=== PATIENT | female | born 1990 | race Caucasian/White ===

== ENCOUNTER 2017-10-08 21:28 | Emergency (ER) | payer MEDICAID ==
[~2017-10-08] VITALS: Ht 160 cm; Wt 89.4 kg
[~2017-10-08 21:28] MED LIST: AMOXICOT500 M1 PO; AMOXICOT500 MG PO; MACROBID100 M3 PO; METHADONE H5 MG/5 M1 PO; MOTRIN 600MG.600 MG PO; NOMEDS XX; PREDNISONE 20MG20 MG PO; TORADOL10 M2 PO
--- OUTSIDE RECORDS SUMMARY | 2017-10-08 21:44 | External Medical Summary Rpt | CCD ---
Author Author Conduent Organization Con[employer] Address Unknown Phone Unavailable Purpose Continuity of Care Document - through 2016
--- OUTSIDE RECORDS SUMMARY | 2017-10-08 21:44 | External Medical Summary Rpt | CCD ---
Author Author , GAVINO ANDERSEN Address Unknown Phone [email or web address] Care Team Providers Care Financial Dealers Name Role Phone [facility] # [id number], Unavailable Unavailable [facility] # [id number] [facility] Unavailable Unavailable [id number] # [phone], [facility] [id number] # [phone] Purpose Continuity of Care Document - 08-29-2010 through 2016 Problems Code Diagnosis DOS Provider Status F17.210 NICOTINE 06-10-2017 DEPENDENCE, CIGARETTES, UNCOMPLICAT ED J45.909 UNSPECIFIED 06-10-2017 ASTHMA, UNCOMPLICAT ED R07.82 INTERCOSTAL 06-10-2017 PAIN R07.9 CHEST PAIN, 06-10-2017 UNSPECIFIED G56.02 CARPAL TUNNEL SYNDROME, LEFT UPPER LIMB J06.9 ACUTE UPPER RESPIRATORY INFECTION, UNSPECIFIED J32.9 CHRONIC SINUSITIS, UNSPECIFIED Z72.0 TOBACCO USE Medications Na ND Rx Da Fi Fi Am Da Di Ph RX Ph St me C No te ll ll ou ys ag ar # ys at rm s nt no ma ic us Or Da si cy ia de te s n re d IB 55 05 05 3 60 15 CV 61 No Ac UP 11 -2 -2 .0 S 78 t ti RO 10 0- 0- 00 PH 49 Av ve FE 68 20 20 AR ai N 30 11 11 MA la 60 5 CY bl 0 # e MG 06 TA 94 BL 1 ET LA 65 05 05 5 30 30 CV 61 No Ac EN 16 -2 -2 .0 S 78 t ti AT 20 0- 0- 00 PH 48 Av ve AL 66 20 20 AR ai [address] 0 CY bl US # e TA 06 BL 94 ET 1 DO 00 05 05 3 60 30 CV 61 No Ac CU 53 -2 -2 .0 S 78 t ti SA 63 0- 0- 00 PH 47 Av ve TE 75 20 20 AR ai 71 11 11 MA la SO 0 CY bl DI # e UM 06 25 94 0 1 MG CA PS UL E 59 04 04 2 8. 25 RI 60 FE Ac 31 -2 -[address] ti 00 5- 5- 0 54 A ve 57 20 20 AI AA 92 11 11 D RO 0 PH N AR MA CY 03 91 2 # 03 91 PE 45 04 04 2 60 1 RI 60 FE Ac RM 80 -0 -[address] ti ET 20 4- 5- 00 94 A ve HR 26 20 20 AI AA IN 93 11 11 D RO 7 PH N 5% AR MA CR CY EA M 03 91 2 # 03 91 00 03 03 20 3 RI 59 MO Ac 60 -0 -0 .0 TE 93 RR ti 33 8- 8- 00 65 IS ve 88 20 20 AI 12 11 11 D RO 8 PH BE AR RT MA H CY 03 91 2 # 03 91 00 03 03 20 3 RI 59 MO Ac 60 -0 -0 .0 TE 93 RR ti 33 8- 8- 00 65 IS ve 88 20 20 AI 12 11 11 D RO 8 PH BE AR RT MA CY 03 91 2 # 03 91 PE 00 02 02 40 10 RI 59 WI Ac NI 09 -2 -2 .0 TE 82 X ti CI 31 4- 4- 00 52 SO ve LL 17 20 20 AI LI IN 40 11 11 D TA 1 PH IR VK AR E MA S 50 CY 0 MG 03 91 TA 2 BL # ET 03 91 CE 00 11 11 14 7 RI 58 MU Ac PH 14 -0 -0 .0 TE 73 RP ti AL 39 4- 4- 00 84 HY ve EX 89 20 20 AI IN 70 10 10 D HE 1 PH AT 50 AR HE 0 MA R MG CY M CA 03 PS 91 UL 2 E # 03 91 64 10 10 11 30 30 RI 58 JA Ac 37 -1 -1 .0 TE 51 CK ti 60 1- 3- 00 18 SO ve 81 20 20 AI N 80 10 10 D WE 1 PH ND AR Y MA L CY 03 91 2 # 03 91 LA 00 10 10 20 5 RI 58 JA Ac OM 60 -1 -1 .0 TE 51 CK ti ET 35 1- 3- 00 17 SO ve BARRERA 43 20 20 AI N ZI 72 10 10 D WE NE 1 PH ND AR Y 12 MA L .5 CY MG 03 91 TA 2 BL # ET 03 91
--- OUTSIDE RECORDS SUMMARY | 2017-10-08 21:44 | External Medical Summary Rpt | CCD ---
Author Author , GAVINO ANDERSEN Address Unknown Phone [email or web address] Care Team Providers Care Director Motion Picture Name Role Phone [facility] # [id number], Unavailable Unavailable [facility] # [id number] [facility] Unavailable Unavailable [id number] # [phone], [facility] [id number] # [phone] Purpose Continuity of Care Document [...] MG 06 TA 94 BL 1 ET KS 65 05 05 5 30 30 CV [...] CY 03 91 2 # 03 91 [place] 00 10 10 20 5 RI 58 [...]
--- OUTSIDE RECORDS SUMMARY | 2017-10-08 21:45 | External Medical Summary Rpt | CCD ---
Demographics Preferred Language Welsh Marital Status Unknown Holiness Affiliation Unknown Race Unknown Ethnic Group Unknown Author Author , NATHALY Organization [facility] Address Unknown Phone Immunization Unable to retrieve immunization data due to connection failure with Immunization Registry. Please try again later.
--- OUTSIDE RECORDS SUMMARY | 2017-10-08 21:45 | External Medical Summary Rpt ---
Author Author NATHALY Mujica, [employer] Organization [employer] Address Unknown Phone Unavailable
--- OUTSIDE RECORDS SUMMARY | 2017-10-08 21:45 | External Medical Summary Rpt | CCD ---
Demographics Preferred Language Lithuanian Marital Status Unknown Rastafari Affiliation Unknown Race Unknown Ethnic Group Unknown Author Author , NATHALY Organization [employer] Address Unknown Phone Immunization Unable to retrieve immunization data due to connection failure with Immunization Registry. Please try again later.
[2017-10-08 22:00] LABS: HEMOGLOBIN 15.7 g/dL (12.2-16.2); LYMPH # 4.9 K/mm3 (0.7-4.5); LYMPH % 31.6 % (10-50.0)
[2017-10-08 22:03] LABS: URINE BILIRUBIN - DIPSTICK NEGATIVE (NEG); URINE BLOOD 1+ (NEG)
[2017-10-08 22:23] LABS: STREP SCREEN (RAPID) NEGATIVE
[2017-10-08 23:08] LABS: NEUTROPHILS 62 % (42-76)
--- NOTE | 2017-10-08 23:15 | Emergency Room Report ---
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 N Clinical Suspician of Infection? N Mental Status: 1 - Regular (Normal Baseline) Sepsis Risk:Low Sepsis Risk Have you (or family members/close friends) recently traveled outside the [place]? N If Yes, where/when: Have you had exposure to infectious disease within the past month? N TB? Other? Specify: Source patient, RN notes reviewed, old records Exam Limitations no limitations Comment wf with 1 day hx of congested cough with no prod sputum and no hemotysis and inc pain with insp Cardiac Chest Pain Chest pain indicative of cardiac No Timing/Duration this evening Severity moderate ALLERGIES Coded Allergies: No Known Allergies (06/10/17) Home Medications Reported Medications METHADONE HCL (Methadone Hydrochloride) 90 MG PO DAILY History Medical History General CAD? No Angina: No ID: No Hypertension? No Hyperlipidemia? No CHF? No DVT? No PE? No COPD? No Asthma? Yes Anemia? No GERD? No Gastric ulcers? No GI Bleed? No Hernia? No Thyroid Problems? No Hypothyroidism? No CVA? No Seizures? No Diabetes? No Insulin Dependent: No Insulin Pump: No Home FSBS? No Renal Insuffiency? No End Stage Renal Disease? No UTI? No Stones? No BPH? No GB Disease: No Nephritic Syndrome? No Asplenia? No Hepatitis? No Sickle Cell Disease? No Arthritis? No Migraines? No Cataracts? No Glaucoma? No MRSA? No HIV? No TB? No Anxiety? No Depression? No Cancer? No More? 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 Respiratory cough, denies shortness of breath, denies wheezing Cardiovascular denies chest pain, denies syncope Gastrointestinal denies abdominal pain, denies diarrhea, denies vomiting Genitourinary denies: dysuria, frequency, hesitancy, hematuria. Musculoskeletal denies back pain, denies joint pain, denies joint swelling, denies neck pain Skin denies rash Psychiatric/Neurological denies headache, denies seizure Physical Exam Vital Signs Vital Signs Date Time Temp Pulse Resp B/P Pulse O2 O2 Flow FiO2 Ox Delivery Rate 10/08 2314 18 99 10/08 2313 98.9 104 18 99 10/08 2133 98.9 104 18 99 - WBC >12,000 or <4,000 or 10% bands? 2 or more SIRS Criteria Met? B/P: MAP:118 Creatinine >2.0? UA output<0.5ml/kg/hr for 2 hrs? Platelet count >100,000? Lactate >2.0mmol/1? INR >1.2 or PTT > than 60 sec? Evidence of Organ Dysfunction? Provider documented clinical suspician of infection? N Sepsis Criteria Count: 1 Sepsis Risk: Low Sepsis Risk General Appearance no apparent distress Eye Exam - bilateral eye PERRL, bilateral eye EOMI Ear, Nose, Throat pharyngeal erythema, tonsillar swelling Neck supple Respiratory Status No: respiratory distress. Lung Sounds bilateral: rhonchi. Cardiovascular regular rate/rhythm, systolic murmur Peripheral Pulses Pulses normal Yes Gastrointestinal soft Extremities normal inspection Strength 4 Upper Ext (L), 4 Upper Ext (R), 4 Lower Ext (L), 4 Lower Ext (R) Neurologic alert, wound care nurse II-XII nml as tested, no motor/sensory deficits Reflexes Reflexes normal Yes Mental status normal mood/affect Skin intact Medical Decision Making LABS/Meds/Orders Pt receiving controlled substance in ED? No Results/Orders Laboratory Tests 10/08/172139: Lactic Acid 1.4 10/08/172139: Sodium 141, Potassium 3.5, Chloride 103, Carbon Dioxide 31, BUN 5 L, Creatinine 0.6, Estimated Creat Clear 199, Estimated GFR (MDRD) 120, Glucose 116 H, Calcium 8.9, Total Bilirubin 0.3, AST 40 H, ALT 63, Alkaline Phosphatase 109, Total Protein 8.2, Albumin 3.9, Globulin 4.3 H, Albumin/Globulin Ratio 0.9 L, WBC 15.7 H, RBC 5.28, Hgb 15.7, Hct 47.4 H, MCV 89.8, RDW 14.5, Plt Count 300, MPV 7.2 L, Gran % 62.8, Gran # 9.8 H, Total Counted 100, Lymphocytes % 31.6, Monocytes % 3.7, Eosinophils % 1.6, Basophils % 0.4, Neutrophils 62, Lymphocytes (Manual) 36, Lymphocytes # 4.9 H, Monocytes # 0.6, Eosinophils # 0.3, Eosinophils # (Manual) 2, Basophils # 0.1, Platelet Estimate NORMAL, Anisocytosis 1+, PUBS MCHC 33.0, MCH 29.7, Influenza Type A Ag NOT DETECTED, Influenza Type B Ag NOT DETECTED, Urine Color YELLOW, Urine Appearance CLEAR, Urine pH 7.0, Ur Specific [place] 1.010, Urine Protein NEGATIVE, Urine Ketones NEGATIVE, Urine Blood 1+ H, Urine Nitrate NEGATIVE, Urine Bilirubin NEGATIVE, Urine Urobilinogen 0.2, Ur Leukocyte Esterase 1+ H, Urine RBC 3-5, Urine WBC 3- 5, Ur Squamous Epith Cells 5-10, Urine Bacteria 1+, Urine Trichomonas 1+, Urine Glucose NEGATIVE Current Medication Orders Sig/Bakari Start time Last Medication Dose Route Stop Time Status Admin Sodium Chloride 1,000 ML .Q1H1M 10/08 2215 DC 10/08 IV 10/08 Sodium Chloride 10 ML PRN PRN 10/08 2215 AC IV 10/09 2211 Sodium Chloride 1,000 ML .STK-MED ONE 10/08 2210 DC IV Albuterol/Ipratropium 3 ML ONCE ONE 10/08 2145 DC 10/08 INH 10/08 Albuterol/Ipratropium 0 .STK-MED ONE 10/08 2137 DC INH Albuterol/Ipratropium 3 ML ONCE ONE 10/08 2130 DC 10/08 INH 10/08 Sodium Chloride 10 ML PRN PRN 10/08 2130 AC IV 10/09 2130 Orders Procedure Date/time Status STREP SCREEN THROAT 10/08 2158 Complete INFLUENZA A&B ANTIGENS 10/08 2158 Complete CULTURE, THROAT 10/08 2140 Active DIFFERENTIAL-WBC 10/08 2140 Complete RT REQUEST DUONEB 10/08 2132 Active CULTURE, BLOOD 10/08 2131 Active LACTIC ACID 10/08 2131 Complete RT REQUEST DUONEB 10/08 2130 Active CHEST(2 VIEWS-NOT PORTABLE) 10/08 2130 Active IV SALINE LOCK 10/08 2130 Active URINALYSIS/COMPLETE 10/08 2130 Complete URINE 10/08 2130 Complete CBC WITH AUTO DIFF 10/08 2130 Complete CHEM 12 PROFILE 10/08 2130 Complete XRAY/CT/US XRAY/CT/US XRAY chest XR interpretation by reviewed by me Xray Results abnormal (bilat perihilar changes ) Departure Departure Time of Disposition 2315 Disposition DC Home or Self Care(routine) Clinical Impression Primary Impression: Bronchitis Secondary Impressions: Trichomonas vaginitis Condition STABLE Patient Instructions DI for Cough -- Adult Additional Instructions fluids and see pcp for follow up Discharge Counseling Counseled pt/family regarding diagnosis, test results, medications/RX, follow up needs Prescriptions Current Visit Scripts Azithromycin (Zithromycin (Z-SHIRA) 250MG Tab) 250 MG PO DAILY #6 TAB TAKE TWO (2) TABLETS ON DAY 1, THEN ONE (1) TABLET DAY #2 THRU #5 BENZONATATE (Benzonatate) 100 MG PO TID #15 CAP Prednisone (Prednisone 20MG) 20 MG PO BID #10 TAB Metronidazole (Flagyl) 500 MG PO TID #15 TAB ED Critical Care Critical Care No at [id number]
[2017-10-08] MEDS ORDERED: FLAGYL500 M1 PO ×2 (23:21→23:27)
[2017-10-08] MEDS ORDERED: ZITHROMAX Z PA250 MG PO ×2 (23:21→23:27)
[2017-10-08] MEDS ORDERED: TESSALON PERLE100 MG PO ×2 (23:21→23:27)
[2017-10-08] MEDS ORDERED: PREDNISONE 20MG20 MG PO ×2 (23:21→23:27)
--- NOTE | 2017-10-08 23:26 | RADIOLOGY REPORT PS360 ---
CHEST(2 VIEWS-NOT PORTABLE) HISTORY: CHEST TIGHTNESS ORDERING PHYSICIAN: Kallie Lowe MD PATIENT AGE: 27 years COMPARISON: None available FINDINGS: The cardiomediastinal silhouette and pulmonary vascularity are within normal limits. The lungs are clear without infiltrates, suspicious nodules, or pleural effusions. No acute bony abnormalities. IMPRESSION: Negative chest, no acute finding
[2017-10-08 23:47] VITALS: BP 155/79
== END 2017-10-08 23:47 | disposition home or self-care (01) ==
LOC: ER 21:28
PROVIDERS: Emergency Medicine
DX: J20.9 Acute bronchitis, unspecified (principal); A59.01 Trichomonal vulvovaginitis; F17.210 Nicotine dependence, cigarettes, uncomplicated; J45.909 Unspecified asthma, uncomplicated